=== PATIENT | female | born 1945 | race Caucasian/White ===

== ENCOUNTER 2019-03-21 09:43 | Observation (INO) | payer OTHER ==
[2019-03-21] MEDS ORDERED: IPRATROPIUM/ALBUTEROL 0.5-2.5 MG/3 ML AMPUL NEB ONE (10:02)
[2019-03-21] MEDS ORDERED: METHYLPREDNISOLONE INJ 125 MG/2 ML SDV IV ONE (10:02)
[2019-03-21] MEDS ORDERED: MAGNESIUM SULFATE/D5W 1 GM/100 ML RTUPB IV ONE ×2 (10:03)
--- NOTE | 2019-03-21 10:05 | ER Document Report ---
ED Medical Screen (RME) - General Chief Complaint: Breathing Difficulty Stated Complaint: DIFFICULTY BREATHING Time Seen by Provider: 03/21/19 09:57 TRAVEL OUTSIDE OF THE [place] IN LAST 30 DAYS: No - HPI Notes: 03/21/19 10:04 Patient is a 73-year-old female with a history of non-oxygen dependent COPD with baseline oxygen saturations around 97% per patient as well as type 2 diabetes (well controlled) presents complaining of semi-productive cough, wheezing, shortness of breath since [place]. She has been on steroids intermittently throughout this time. Patient states that she feels like she is getting worse so she came here for evaluation. She is not having any chest pain otherwise. No fever. I have treated and performed a rapid initial assessment of this patient. A comprehensive ED assessment and evaluation of the patient, analysis of test results and completion of medical decision making process will be conducted by additional ED providers. PHYSICAL EXAMINATION: GENERAL: Well-appearing, well-nourished and in no acute distress. A&Ox4. Answers questions appropriately. Lungs: Wheezing and diminished lung sounds throughout. No retractions. - Related Data Allergies/Adverse Reactions: Penicillins Allergy (Verified 03/21/19 10:02) Past Medical History - Social History Chew tobacco use (# tins/day): No Frequency of alcohol use: None Drug Abuse: None Physical Exam - Vital signs Vitals: Temp Pulse Resp BP Pulse Ox 97.8 F 103 H 22 H 135/77 H 89 L 03/21/19 09:52 03/21/19 09:52 03/21/19 09:52 03/21/19 09:52 03/21/19 09:52 Course - Vital Signs Vital signs: Temp Pulse Resp BP Pulse Ox 97.8 F 103 H 22 H 135/77 H 89 L 03/21/19 09:52 03/21/19 09:52 03/21/19 09:52 03/21/19 09:52 03/21/19 09:52
[2019-03-21 10:53] LABS: VENOUS BLOOD BASE EXCESS 8.6 mmol/L; VENOUS BLOOD PCO2 58.4 mmHg (35-63); VENOUS BLOOD PH 7.41 (7.30-7.42)
[2019-03-21 11:03] LABS: ABSOLUTE EOSINOPHILS # (AUTO) 0.1 10^3/uL (0.0-0.6); ABSOLUTE MONOCYTES (AUTO) 0.5 10^3/uL (0.1-1.4); ABSOLUTE NEUT (AUTO) 3.3 10^3/uL (1.7-8.2); BASOPHILS % (AUTO) 0.6 % (0-2); EOSINOPHILS % (AUTO) 1.9 % (0-6); HEMATOCRIT 50.5 % (36.0-47.0); HEMOGLOBIN 17.2 g/dL (12.0-15.5); LYMPHOCYTES % (AUTO) 42.6 % (13-45); MEAN CORPUSCULAR HEMOGLOBIN 32.4 pg (27.0-33.4); MEAN CORPUSCULAR HGB CONC 34.1 g/dL (32.0-36.0); MEAN CORPUSCULAR VOLUME 95 fl (80-97); MONOCYTES % (AUTO) 7.2 % (3-13); PLATELET COUNT 261 10^3/uL (150-450); RED BLOOD COUNT 5.31 10^6/uL (3.72-5.28); RED CELL DISTRIBUTION WIDTH 14.7 % (11.5-14.0); SEGMENTED NEUTROPHILS % (AUTO) 47.7 % (42-78); TOTAL CELLS COUNTED % (AUTO) 100 %
[2019-03-21 11:10] LABS: ALBUMIN 4.6 g/dL (3.5-5.0); ALKALINE PHOSPHATASE 55 U/L (38-126); ANION GAP 7 (5-19); ASPARTATE AMINO TRANSFERASE 36 U/L (14-36); BILIRUBIN,DIRECT 0.3 mg/dL (0.0-0.4); BILIRUBIN,TOTAL 0.7 mg/dL (0.2-1.3); BLOOD UREA NITROGEN 7 mg/dL (7-20); CALCIUM 9.9 mg/dL (8.4-10.2); CARBON DIOXIDE 35 mmol/L (22-30); CHLORIDE 96 mmol/L (98-107); GLUCOSE 157 mg/dL (75-110); POTASSIUM 3.9 mmol/L (3.6-5.0)
--- NOTE | 2019-03-21 11:12 | ER Document Report ---
ED General - General Chief Complaint: Breathing Difficulty Stated Complaint: DIFFICULTY BREATHING Time Seen by Provider: 03/21/19 09:57 Notes: 73-year-old female who is visiting the area from [place] presents the emergency department complaining of a "COPD attack" that has been progressively worsening since . She was initially started by her primary care physician in [place] on an unknown antibiotic as well as prednisone 50 mg a day for 3 days then 25 mg x 4 days. Patient states that this has not helped at all and she feels like she is getting progressively worse. She denies any fever but admits productive cough as well as wheezing and increasing shortness of breath. Only chest pain is when she coughs. Patient has been having to use her rescue inhaler which is Ventolin 6-8 times a day every day. Does not usually use oxy gen at home. States her oxygen saturation is usually about 97% on room air. TRAVEL OUTSIDE OF THE [place] IN LAST 30 DAYS: No - Related Data Allergies/Adverse Reactions: Penicillins Allergy (Verified 03/21/19 10:02) Past Medical History - General Information source: Patient - Social History Smoking Status: Current Every Day Smoker Chew tobacco use (# tins/day): No Frequency of alcohol use: None Drug Abuse: None Family History: COPD Patient has suicidal ideation: No Patient has homicidal ideation: No Review of Systems - Review of Systems Constitutional: See HPI, Weakness. denies: Fever EENT: No symptoms reported Cardiovascular: See HPI, Chest pain - Only with cough. Respiratory: See HPI, Cough, Short of breath Gastrointestinal: No symptoms reported -: Yes All other systems reviewed and negative Physical Exam - Vital signs Vitals: Temp Pulse Resp BP Pulse Ox 97.8 F 103 H 22 H 135/77 H 89 L 03/21/19 09:52 03/21/19 09:52 03/21/19 09:52 03/21/19 09:52 03/21/19 09:52 Interpretation: Hypoxic - Notes Notes: GENERAL: Alert, appears mildly short of breath. HEAD: Normocephalic, atraumatic EYES: Pupils equal, round and reactive to light, extraocular movements intact. ENT: Oral mucosa moist, tongue midline. NECK: Full range of motion, supple, trachea midline. LUNGS: Somewhat tight, decreased air movement, appears short of breath after speaking a few sentences but not short of breath when I walk into the room initially. Inspiratory squeaking in the right lower lobe, expiratory wheezing. HEART: Regular rate and rhythm, no murmurs, gallops, rubs. ABDOMEN: Soft, nontender, nondistended, bowel sounds present in all 4 quadrants. EXTREMITIES: Moves all 4 extremities spontaneously, no edema, radial and dorsalis pedis pulses 2/4 bilaterally. No cyanosis. NEUROLOGICAL: Alert and oriented x3, no facial droop. PSYCH: Normal mood, normal affect. SKIN: Warm, Dry, normal turgor. Course - Re-evaluation Re-evalutation: 03/21/19 11:12 Shortly after I left the room patient started her albuterol breathing treatment and actually started having more difficulty breathing rather than less. Patient will be started on BiPAP and breathing treatments will be continued. 03/21/19 15:40 Patient was unable to tolerate BiPAP, however after resting on the side of the bed her breathing improved to the point that she could tolerate the facemask with the breathing treatments. Patient ended up doing well off of BiPAP, wheezing resolved with breathing treatments however she was still tachypneic and easily became short of breath. On ambulation she desaturated to 87% on room air. Chest x-ray does not reveal any pneumonia, wheezing is resolved yet hyp oxia persists, venous blood gas grossly unremarkable, chemistries grossly unremarkable, urinalysis unremarkable, CT angiogram of the chest was ordered to rule out pulmonary embolism and this was negative. Patient was treated with breathing treatments and steroids, discussed with Dr. Madrigal who accepted the patient and also discussed with Saskia Marin NP who will be officially admitting the patient. - Vital Signs Vital signs: Temp Pulse Resp BP Pulse Ox 97.8 F 103 H 21 H 129/72 H 89 L 03/21/19 09:52 03/21/19 09:52 03/21/19 15:00 03/21/19 14:01 03/21/19 15:00 - Laboratory Result Diagrams: 03/21/19 10:25 03/21/19 10:25 Laboratory results interpreted by me: 03/21/19 03/21/19 03/21/19 10:25 10:25 10:25 RBC 5.31 H Hgb 17.2 H Hct 50.5 H RDW 14.7 H VBG HCO3 36.0 H Chloride 96 L Carbon Dioxide 35 H Glucose 157 H Urine Glucose (UA) Urine Ketones 03/21/19 13:33 RBC Hgb Hct RDW VBG HCO3 Chloride Carbon Dioxide Glucose Urine Glucose (UA) 50 H Urine Ketones TRACE H - EKG Interpretation by Me Additional EKG results interpreted by me: 03/21/19 15:42 EKG shows sinus rhythm at a rate of 99, normal axis, normal intervals, no ST segment elevations or depressions, there are T wave inversions noted in aVL and 2 per my interpretation. Discharge - Discharge Clinical Impression: Acute and chronic respiratory failure with hypoxia, Acute exacerbation of chronic obstructive pulmonary disease (COPD) Condition: Fair Disposition: ADMITTED INPATIENT Admitting Provider: Rohan (Hospitalist) - [place] [facility] Admitted: Medical Floor
--- NOTE | 2019-03-21 11:23 | EKG REPORT ---
SEVERITY:- BORDERLINE ECG - SINUS RHYTHM BORDERLINE T ABNORMALITIES, ANT-LAT LEADS : Confirmed by: Holly Lora MD 21-Mar-2019 11:22:39
--- NOTE | 2019-03-21 11:50 | RADIOLOGY REPORT (SQ) ---
EXAM DESCRIPTION: CHEST SINGLE VIEW COMPLETED DATE/TIME: 03/21/2019 11:03 am REASON FOR STUDY: SOB, cough COMPARISON: None. EXAM PARAMETERS: NUMBER OF VIEWS: One view. TECHNIQUE: Single frontal radiographic view of the chest acquired. RADIATION DOSE: NA LIMITATIONS: None. FINDINGS: LUNGS AND PLEURA: Upper lobes are hyperlucent from obstructive disease. No acute infiltrates. No pleural effusion. No pneumothorax. MEDIASTINUM AND HILAR STRUCTURES: No masses. Contour normal. HEART AND VASCULAR STRUCTURES: Heart normal in size. Normal vasculature. BONES: No acute findings. HARDWARE: None in the chest. OTHER: No other significant finding. IMPRESSION: Hyperlucency from obstructive disease. No acute infiltrates TECHNICAL DOCUMENTATION: JOB ID: [id number] [employer]- All Rights Reserved Reading location - IP/workstation name: [email or web address]
[2019-03-21 14:19] LABS: APPEARANCE,URINE CLEAR; BILIRUBIN,URINE NEGATIVE (NEGATIVE); COLOR,URINE STRAW; GLUCOSE, URINE 50 mg/dL (NEGATIVE); KETONES,URINE TRACE mg/dL (NEGATIVE); PROTEIN,URINE NEGATIVE (NEGATIVE); URINE SPECIFIC GRAVITY 1.006; UROBILINOGEN,URINE NEGATIVE mg/dL (<2.0)
--- NOTE | 2019-03-21 14:46 | RADIOLOGY REPORT (SQ) ---
EXAM DESCRIPTION: CTA CHEST COMPLETED DATE/TIME: 03/21/2019 2:32 pm REASON FOR STUDY: COPD, hypoxia, r/o PE COMPARISON: AP chest 03/21/2019 TECHNIQUE: CT scan of the chest performed using helical scanning technique with dynamic intravenous contrast injection. Images reviewed with lung, soft tissue and bone windows. Reconstructed coronal and sagittal MPR images reviewed. Additional 3 dimensional post-processing performed to develop Maximal Intensity Projection images (NH P). All images stored on PACS. All CT scanners at this facility use dose modulation, iterative reconstruction, and/or weight based d osing when appropriate to reduce radiation dose to as low as reasonably achievable (ALARA). [facility]: Dose Right [facility]: CareDose [facility]: Dose Right [facility]: Teradose 4D [facility]: Canpages CONTRAST TYPE AND DOSE: contrast/concentration: Isovue 350.00 mg/ml; Total Contrast Delivered: 49.0 ml; Total Saline Delivered: 28.0 ml Contrast bolus adequate for pulmonary arteries and aorta. RENAL FUNCTION: Creatinine 0.5 RADIATION DOSE: CT Rad equipment meets quality standard of care and radiation dose reduction techniq ues were employed. CTDIvol: 6.6 - 14.3 mGy. DLP: 521 mGy-cm. . LIMITATIONS: Mild motion artifact. FINDINGS: LUNGS AND PLEURA: No acute infiltrates. No pleural effusion or pneumothorax. Benign-appe aring 5 mm nodule along the right major fissure axial image 55, sagittal image 21. Chronic bandlike scarring medial aspect right middle lobe axial image [id number]. AORTA AND GREAT VESSELS: No aneurysm. Contrast bolus not optimized for the aorta. HEART: No pericardial effusion. No significant coronary artery calcifications. PULMONARY ARTERIES: No emboli visualized in the main pulmonary arteries or the segmental branches. HILAR AND MEDIASTINAL STRUCTURES: No identified masses or abnormal nodes. HARDWARE: None in the chest. UPPER ABDOMEN: No significant findings. Limited exam. THYROID AND OTHER SOFT TISSUES: No masses. No adenopathy. BONES: No acute or significant finding. 3D MIPS: Confirm above findings. OTHER: No other significant finding. IMPRESSION: No CT angio evidence of thoracic aortic dissection or acute pulmonary emboli. No acute infiltrates. COMMENT: Quality ID # [id number]: Final reports with documentation of one or more dose reduction techniques (e.g., Automated exposure control, adjustment of the mA and/or kV according to patient size, use of iterative reconstruction technique) TECHNICAL DOCUMENTATION: JOB ID: [id number] [employer]- All Rights Reserved Reading location - IP/workstation name: [email or web address]
[2019-03-21] MEDS ORDERED: MAG HYDROX/AL HYDROX/SIMETH SUSP 30 ML UDCUP PO PRN (17:06)
[2019-03-21] MEDS ORDERED: ONDANSETRON HCL INJ/PF 4 MG/2 ML SDV IV PRN (17:06)
[2019-03-21] MEDS ORDERED: ACETAMINOPHEN 325 MG TABLET PO PRN (17:06)
[2019-03-21] MEDS ORDERED: ALBUTEROL SULFATE 0.083% NEB 2.5 MG/3 ML AMPUL NEB PRN (17:06)
[2019-03-21] MEDS ORDERED: GLUCAGON,HUMAN RECOMB 1 MG INJ IM PRN (17:28)
[2019-03-21] MEDS ORDERED: DEXTROSE 40% GEL 15 GM TUBE PO PRN ×2 (17:28)
[2019-03-21] MEDS ORDERED: DEXTROSE 50%-WATER 25 GM/50 ML DISP.SYRIN IV PRN ×2 (17:28)
--- NOTE | 2019-03-21 17:31 | PDOC H&P ---
History of Present Illness Admission Date/PCP: 03/21/19 15:52 Patient complains of: shortness of breath History of Present Illness: DK MONGE is a 73 year old female with a past medical history significant for DM 2, HLD, COPD, tobacco dependence with continuous use who presents to the emergency department today with a complaint of 3 weeks of progressively worsening shortness of breath and productive cough unresponsive to prednisone and rescue inhalers. Patient is now experiencing dyspnea while at rest. Evaluation in the emergency department reveals Tachycardia (HR 110), tachypnea (RR 29), hypoxia on room air (88 at rest: 82% while ambulatory), unremarkable CBC, VBG, chemistry, urinalysis. EKG shows sinus tachycardia. Chest x-ray and CTA show obstructive disease but otherwise are benign. She is provided IV magnesium, Solu-Medrol, nebulizer treatments, and supplemental oxygen. She is referred to the hospitalist service for admission and management of the above-stated complaints of findings. Past Medical History Cardiac Medical History: Reports: Hyperlipidema Denies: Congestive Heart Failure, Coronary Artery Disease, Myocardial Infarction, Hypertension Pulmonary Medical History: Reports: Chronic Obstructive Pulmonary Disease (COPD) EENT Medical History: Reports: None Neurological Medical History: Reports: None Endocrine Medical History: Reports: Diabetes Mellitus Type 2 Renal/ Medical History: Reports: None Malignancy Medical History: Reports: None GI Medical History: Reports: None Musculoskeltal Medical History: Reports: None Skin Medical History: Reports: None Psychiatric Medical History: Reports: Tobacco Dependency Denies: Alcohol Dependency, Depression, Substance Abuse Traumatic Medical History: Reports: None Hematology: Reports: None Infectious Medical History: Reports: None Past Surgical History Past Surgical History: Reports: Section - x2, Orthopedic Surgery - L ankle, Tonsillectomy Social History Information Source: Patient Lives with: Family Smoking Status: Current Every Day Smoker Cigarettes Packs Per Day: 0.5 Electronic Cigarette use?: No Frequency of Alcohol Use: None Hx Recreational Drug Use: No Drugs: None Hx Prescription Drug Abuse: No - Advance Directive Resuscitation Status: Full Code Family History Family History: COPD Parental Family History Reviewed: Yes Children Family History Reviewed: Yes Sibling(s) Family History Reviewed.: Yes Medication/Allergy Home Medications: Albuterol Sulfate [Ventolin Hfa 8 gm Mdi (1 Mdi/ER Disp)] 2 puff IH Q4HP PRN 03/21/19 Alendronate Sodium [Fosamax 70 mg Tablet] 1 tab PO WE@1000 03/21/19 Calcium Carbonate [Os-Tyrell 500 mg Tablet (Oyster-Shell)] 500 mg PO DAILY 03/21/19 Cholecalciferol (Vitamin D3) [Vitamin D3] 10,000 unit PO WE@1000 03/21/19 Ciclesonide [Alvesco HFA] 2 puff IH QHS 03/21/19 Cyanocobalamin (Vitamin B-12) [Vitamin B-12 250 mcg Tablet] 250 mcg PO DAILY 03/21/19 Metformin HCl [Glucophage 500 mg Tablet] 1,000 mg PO BIDBS 03/21/19 Rosuvastatin Calcium [Crestor 20 mg Tablet] 20 mg PO QHS 03/21/19 Tiotropium [place] [Spiriva Respimat] 2 puff IH DAILY 03/21/19 Allergies/Adverse Reactions: Penicillins Allergy (Verified 03/21/19 10:02) Review of Systems Constitutional: ABSENT: chills, fever(s), headache(s), weight gain, weight loss Eyes: ABSENT: visual disturbances Ears: ABSENT: hearing changes Cardiovascular: ABSENT: chest pain, dyspnea on exertion, edema, orthropnea, palpitations Respiratory: PRESENT: cough, dyspnea, sputum. ABSENT: hemoptysis Gastrointestinal: ABSENT: abdominal pain, constipation, diarrhea, hematemesis, hematochezia, nausea, vomiting Genitourinary: ABSENT: dysuria, hematuria Musculoskeletal: ABSENT: joint swelling Integumentary: ABSENT: rash, wounds Neurological: ABSENT: abnormal gait, abnormal speech, confusion, dizziness, focal weakness, syncope Psychiatric: ABSENT: anxiety, depression, homidical ideation, suicidal ideation Endocrine: ABSENT: cold intolerance, heat intolerance, polydipsia, polyuria Hematologic/Lymphatic: ABSENT: easy bleeding, easy bruising Physical Exam Vital Signs: Temp Pulse Resp BP Pulse Ox 97.8 F 103 H 21 H 129/72 H 89 L 03/21/19 09:52 03/21/19 09:52 03/21/19 15:00 03/21/19 14:01 03/21/19 15:00 Intake & Output 03/20/19 03/21/19 03/22/19 06:59 06:59 06:59 Intake Total 200 Balance 200 Weight 49.6 kg General appearance: PRESENT: no acute distress, cooperative, thin, well- developed Head exam: PRESENT: atraumatic, normocephalic Eye exam: PRESENT: conjunctiva pink, EOMI, PERRLA. ABSENT: scleral icterus Ear exam: PRESENT: normal external ear exam Mouth exam: PRESENT: moist, tongue midline Teeth exam: PRESENT: dental caries, poor dentation Neck exam: ABSENT: carotid bruit, JVD, lymphadenopathy, thyromegaly Respiratory exam: PRESENT: prolonged expiratory phas, rhonchi, symmetrical, tachypnea, unlabored, other - supplemental oxygen. ABSENT: rales, wheezes Cardiovascular exam: PRESENT: RRR, +S1, +S2, tachycardia. ABSENT: diastolic murmur, rubs, systolic murmur Pulses: PRESENT: normal dorsalis pedis pul Vascular exam: PRESENT: normal capillary refill Rectal exam: PRESENT: deferred Extremities exam: PRESENT: full ROM. ABSENT: calf tenderness, clubbing, pedal edema Musculoskeletal exam: PRESENT: ambulatory Neurological exam: PRESENT: alert, awake, oriented to person, oriented to place, oriented to time, oriented to situation, CN II-XII grossly intact. ABSENT: motor sensory deficit Psychiatric exam: PRESENT: appropriate affect, normal mood. ABSENT: homicidal ideation, suicidal ideation Skin exam: PRESENT: dry, intact, warm. ABSENT: cyanosis, rash Results Laboratory Results: 03/21/19 10:25 03/21/19 10:25 03/21/19 03/21/19 03/21/19 10:25 10:25 10:25 WBC 7.0 RBC 5.31 H Hgb 17.2 H Hct 50.5 H MCV 95 MCH 32.4 MCHC 34.1 RDW 14.7 H Plt Count 261 Seg Neutrophils % 47.7 VBG pH 7.41 VBG pCO2 58.4 VBG HCO3 36.0 H VBG Base Excess 8.6 Sodium 138.2 Potassium 3.9 Chloride 96 L Carbon Dioxide 35 H Anion Gap 7 BUN 7 Creatinine 0.52 Est GFR ( Amer) > 60 Glucose 157 H Lactic Acid Calcium 9.9 Total Bilirubin 0.7 AST 36 Alkaline Phosphatase 55 Total Protein 8.0 Albumin 4.6 Urine Color Urine Appearance Urine pH Ur Specific [place] Urine Protein Urine Glucose (UA) Urine Ketones Urine Blood 03/21/19 03/21/19 03/21/19 10:25 13:15 13:33 WBC RBC Hgb Hct MCV MCH MCHC RDW Plt Count Seg Neutrophils % VBG pH VBG pCO2 VBG HCO3 VBG Base Excess Sodium Potassium Chloride Carbon Dioxide Anion Gap BUN Creatinine Est GFR ( Amer) Glucose Lactic Acid 1.3 1.4 Calcium Total Bilirubin AST Alkaline Phosphatase Total Protein Albumin Urine Color STRAW Urine Appearance CLEAR Urine pH 6.0 Ur Specific [place] 1.006 Urine Protein NEGATIVE Urine Glucose (UA) 50 H Urine Ketones TRACE H Urine Blood NEGATIVE Impressions: Chest X-Ray 03/21/19 10:02 IMPRESSION: Hyperlucency from obstructive disease. No acute infiltrates Chest/Abdomen CTA 03/21/19 13:46 IMPRESSION: No CT angio evidence of thoracic aortic dissection or acute pulmonary emboli. No acute infiltrates. Assessment and Plan - Diagnosis (1) Acute exacerbation of chronic obstructive pulmonary disease (COPD) Is this a current diagnosis for this admission?: Yes Plan: Patient is admitted to the medical floor on continuous pulse oximetry. She is provided supplemental oxygen as needed to maintain saturations greater than 89%. She is started on scheduled and as needed nebulizer treatments. IV Solu-Medrol. Mucinex twice daily. Flutter valve at bedside. (2) Acute and chronic respiratory failure with hypoxia Is this a current diagnosis for this admission?: Yes Plan: Secondary to #1. Evaluation management as above. (3) Diabetes Qualifiers: Diabetes mellitus type: type 2 Diabetes mellitus snf insulin use: without snf use Diabetes mellitus complication status: without complication Qualified Code(s): E11.9 - Type 2 diabetes mellitus without complications Is this a current diagnosis for this admission?: Yes Plan: Holding metformin due to having received IV contrast dye today while in the emergency department. Accu-Cheks before meals and at bedtime with Humalog for sliding scale coverage. Consistent carb diet. Hypoglycemia protocol in place. (4) Tobacco dependence Is this a current diagnosis for this admission?: Yes Plan: Smoking cessation encouraged. Nicotine replacement therapies provided. - Time Time Spent with patient: 35 or more minutes Medications reviewed and adjusted accordingly: Yes Anticipated discharge: Home Within: within 24 hours
[2019-03-21] MEDS: NICOTINE 14 MG/24 HR PATCH.TD24 TD SCH (18:12)
[2019-03-21] MEDS: IPRATROPIUM/ALBUTEROL 0.5-2.5 MG/3 ML AMPUL NEB SCH (20:22)
[2019-03-21] MEDS ORDERED: (PENDING PHARMACY ID) (Alendronate Sodium [Fosamax 70 Mg Tablet] 1 TAB) PO SCH (21:00)
[2019-03-21] MEDS: MELATONIN 5 MG TABLET PO SCH (22:00)
[2019-03-21] MEDS: HEPARIN SOD (PORCINE) 5,000 UNIT/ML 1 ML VIAL SUBCUT SCH (22:00)
[2019-03-21] MEDS ORDERED: (PENDING PHARMACY ID) (Rosuvastatin Calcium [Crestor 20 Mg Tablet] 20 MG) PO SCH (22:00)
[2019-03-21] MEDS: FAMOTIDINE 20 MG TABLET PO SCH (22:00)
[2019-03-21] MEDS ORDERED: METHYLPREDNISOLONE INJ 40 MG/1 ML SDV IV SCH (22:00)
[2019-03-21] MEDS: GUAIFENESIN 600 MG TABLET.SA PO SCH (22:00)
[2019-03-22] MEDS: INSULIN LISPRO 100 UNIT/ML 3 ML VIAL SUBCUT SCH ×5 (01:04→21:29)
[2019-03-22] MEDS: ATORVASTATIN CALCIUM 40 MG TABLET PO SCH ×2 (01:10→21:30)
[2019-03-22] MEDS: IPRATROPIUM/ALBUTEROL 0.5-2.5 MG/3 ML AMPUL NEB SCH ×4 (02:46→20:52)
[2019-03-22] MEDS: HEPARIN SOD (PORCINE) 5,000 UNIT/ML 1 ML VIAL SUBCUT SCH ×3 (05:57→21:01)
[2019-03-22] MEDS: METFORMIN HCL 500 MG TABLET PO SCH ×2 (07:30→16:58)
[2019-03-22] MEDS: NICOTINE 14 MG/24 HR PATCH.TD24 TD SCH (09:10)
[2019-03-22] MEDS: CALCIUM CARBONATE 500 MG TABLET PO SCH (09:10)
[2019-03-22] MEDS: DOCUSATE SODIUM 100 MG CAPSULE PO SCH (09:10)
[2019-03-22] MEDS: FAMOTIDINE 20 MG TABLET PO SCH ×2 (09:11→21:30)
[2019-03-22] MEDS: GUAIFENESIN 600 MG TABLET.SA PO SCH ×2 (09:14→21:30)
[2019-03-22] MEDS ORDERED: (PENDING PHARMACY ID) (Alendronate Sodium [Fosamax 70 Mg Tablet] 1 TAB) PO SCH (10:00)
--- NOTE | 2019-03-22 17:04 | PDOC PROGRESS REPORT ---
Subjective Progress Note for:: 03/22/19 Subjective:: DK MONGE is a 73 year old female with a past medical history significant for DM 2, HLD, COPD, tobacco dependence with continuous use who was admitted 03/21/2019 with a COPD exacerbation. Patient was seen on morning rounds. She is found sitting up to the edge of the bed, comfortably, on room air preparing to eat her lunch. She reports significant improvement in her dyspnea, however, with increased rhonchi, wheezing, and sputum production. She does continue to have shortness of breath with minimal activity but is maintaining oxygen saturations while ambulatory on room air, though with slight tachycardia. She denies fever, chills, chest pain, palpitations, orthopnea, abdominal pain, nausea vomiting and diarrhea. She reports good appetite. She has no other questions or concerns at this time. Nursing reports patient has been taking her home medications; reviewed these with the patient today. Patient has been taking her metformin; she is advised to hold metformin for an additional 24 hours due to receiving IV contrast dye yesterday. Reason For Visit: COPD EXACERBATION Physical Exam Vital Signs: Temp Pulse Resp BP Pulse Ox 98.4 F 103 H 18 132/80 H 90 L 03/22/19 13:00 03/22/19 13:44 03/22/19 13:44 03/22/19 13:00 03/22/19 16:45 Pulse Oximeter Continuous Start: 03/21/19 17:26 Freq: RTQ4 Status: Active Protocol: Document 03/22/19 16:45 [facility] (Rec: 03/22/19 16:47 [facility] [id number]) Pulse Oximetry Assessment Oxygen Saturation (92-100) 90 Oxygen Flow Rate (L/min) 1 Oxygen Delivery Method Nasal Cannula Equipment Usage Equipment in Use Continuous SpO2 Machine # [id number] Additional RT Notes Other Patient adamantly refused to use the bipap. She indicated she used while in the emergency room and will not wear again. Intake & Output 03/21/19 03/22/19 03/23/19 06:59 06:59 06:59 Intake Total 500 496 Balance 500 496 Weight 51.7 kg General appearance: PRESENT: no acute distress, cooperative, disheveled, thin, well-developed Head exam: PRESENT: atraumatic, normocephalic Eye exam: PRESENT: conjunctiva pink, EOMI, PERRLA. ABSENT: scleral icterus Ear exam: PRESENT: normal external ear exam Mouth exam: PRESENT: moist, tongue midline Teeth exam: PRESENT: poor dentation Neck exam: ABSENT: carotid bruit, JVD, lymphadenopathy, thyromegaly Respiratory exam: PRESENT: prolonged expiratory phas, rhonchi, symmetrical, unlabored, wheezes. ABSENT: rales Cardiovascular exam: PRESENT: RRR, +S1, +S2, tachycardia. ABSENT: diastolic murmur, rubs, systolic murmur Pulses: PRESENT: normal dorsalis pedis pul Vascular exam: PRESENT: normal capillary refill Rectal exam: PRESENT: deferred Extremities exam: PRESENT: full ROM. ABSENT: calf tenderness, clubbing, pedal edema Musculoskeletal exam: PRESENT: ambulatory Neurological exam: PRESENT: alert, awake, oriented to person, oriented to place, oriented to time, oriented to situation, CN II-XII grossly intact. ABSENT: motor sensory deficit Psychiatric exam: PRESENT: appropriate affect, normal mood. ABSENT: homicidal ideation, suicidal ideation Skin exam: PRESENT: dry, intact, warm. ABSENT: cyanosis, rash Results Laboratory Results: 03/21/19 10:25 03/21/19 10:25 Impressions: Chest X-Ray 03/21/19 10:02 IMPRESSION: Hyperlucency from obstructive disease. No acute infiltrates Chest/Abdomen CTA 03/21/19 13:46 IMPRESSION: No CT angio evidence of thoracic aortic dissection or acute pulmonary emboli. No acute infiltrates. Assessment and Plan - Diagnosis (1) Acute exacerbation of chronic obstructive pulmonary disease (COPD) Is this a current diagnosis for this admission?: Yes Plan: Improved; now maintaining oxygen saturations while ambulatory with room air, though with adventitious lung sounds and increased work of breathing. Patient is admitted to the medical floor on continuous pulse oximetry. She is provided supplemental oxygen as needed to maintain saturations greater than 89%. Continue on scheduled and as needed nebulizer treatments. IV Solu-Medrol. Mucinex twice daily. Flutter valve at bedside. (2) Acute and chronic respiratory failure with hypoxia Is this a current diagnosis for this admission?: Yes Plan: Secondary to #1. Evaluation management as above. (3) Diabetes Qualifiers: Diabetes mellitus type: type 2 Diabetes mellitus terminal carman insulin use: without [place] use Diabetes mellitus complication status: without complication Qualified Code(s): E11.9 - Type 2 diabetes mellitus without complications Is this a current diagnosis for this admission?: Yes Plan: Holding metformin due to having received IV contrast dye while in the emergency department. Patient is reminded not to take her home medications; specifically metformin, due to having received contrast dye yesterday. Accu-Cheks before meals and at bedtime with Humalog for sliding scale coverage. Consistent carb diet. Hypoglycemia protocol in place. (4) Tobacco dependence Is this a current diagnosis for this admission?: Yes Plan: Smoking cessation encouraged. Nicotine replacement therapies provided. - Time Time Spent with patient: 25-34 minutes Medications reviewed and adjusted accordingly: Yes Anticipated discharge: Home Within: within 48 hours
[2019-03-22] MEDS: MELATONIN 5 MG TABLET PO SCH (21:30)
[2019-03-22] MEDS: METHYLPREDNISOLONE INJ 40 MG/1 ML SDV IV SCH (21:31)
[2019-03-23] MEDS: IPRATROPIUM/ALBUTEROL 0.5-2.5 MG/3 ML AMPUL NEB SCH ×4 (01:50→20:00)
[2019-03-23] MEDS: HEPARIN SOD (PORCINE) 5,000 UNIT/ML 1 ML VIAL SUBCUT SCH ×3 (06:07→21:01)
[2019-03-23] MEDS: METHYLPREDNISOLONE INJ 40 MG/1 ML SDV IV SCH ×3 (06:22→21:12)
[2019-03-23] MEDS: INSULIN LISPRO 100 UNIT/ML 3 ML VIAL SUBCUT SCH ×4 (08:15→21:12)
[2019-03-23] MEDS: METFORMIN HCL 500 MG TABLET PO SCH ×2 (08:17→17:38)
[2019-03-23] MEDS: GUAIFENESIN 600 MG TABLET.SA PO SCH ×2 (09:25→21:12)
[2019-03-23] MEDS: DOCUSATE SODIUM 100 MG CAPSULE PO SCH (09:26)
[2019-03-23] MEDS: NICOTINE 14 MG/24 HR PATCH.TD24 TD SCH (09:26)
[2019-03-23] MEDS: FAMOTIDINE 20 MG TABLET PO SCH ×2 (09:26→21:02)
[2019-03-23] MEDS: CALCIUM CARBONATE 500 MG TABLET PO SCH (09:26)
[2019-03-23] MEDS ORDERED: ONDANSETRON HCL INJ/PF 4 MG/2 ML SDV IV PRN (09:30)
--- NOTE | 2019-03-23 15:25 | PDOC PROGRESS REPORT ---
Subjective Progress Note for:: 03/23/19 Subjective:: DK MONGE is a 73 year old female with a past medical history significant for DM 2, HLD, COPD, tobacco dependence with continuous use who was admitted 03/21/2019 with a COPD exacerbation. Patient was seen on morning rounds. She is found sitting up to the edge of the bed, comfortably, on room air. She reports significant improvement in her dyspnea, as well as, decreased rhonchi, wheezing, and sputum production. She does continue to have shortness of breath with minimal activity but is maintaining oxygen saturations while ambulatory on room air, though with slight tachycardia. Overall improved. She denies fever, chills, chest pain, palpitations, orthopnea, abdominal pain, nausea vomiting and diarrhea. She reports good appetite. She has no other questions or concerns at this time. No concerns per nursing. Reason For Visit: COPD EXACERBATION Physical Exam Vital Signs: Temp Pulse Resp BP Pulse Ox 98.3 F 86 16 123/70 91 L 03/23/19 01:00 03/23/19 07:32 03/23/19 07:32 03/23/19 01:00 03/23/19 12:00 Pulse Oximeter Continuous Start: 03/21/19 17:26 Freq: RTQ4 Status: Active Protocol: Document 03/23/19 12:00 [facility] (Rec: 03/23/19 12:10 [facility] [id number]) Pulse Oximetry Assessment Oxygen Saturation (92-100) 91 Oxygen Delivery Method Room Air Fraction of Inspired Oxygen (FIO2) 21 Equipment Usage Equipment in Use Continuous SpO2 Machine # N5 Intake & Output 03/22/19 03/23/19 03/24/19 06:59 06:59 06:59 Intake Total 500 1496 Balance 500 1496 Weight 51.7 kg 51.6 kg General appearance: PRESENT: no acute distress, cooperative, thin, well- developed, well-nourished Head exam: PRESENT: atraumatic, normocephalic Eye exam: PRESENT: conjunctiva pink, EOMI, PERRLA. ABSENT: scleral icterus Ear exam: PRESENT: normal external ear exam Mouth exam: PRESENT: moist, tongue midline Teeth exam: PRESENT: poor dentation Respiratory exam: PRESENT: prolonged expiratory phas, rhonchi, symmetrical, unlabored, wheezes. ABSENT: rales Cardiovascular exam: PRESENT: RRR, +S1, +S2, tachycardia - HR 100-115 at rest on room air. ABSENT: diastolic murmur, rubs, systolic murmur Pulses: PRESENT: normal dorsalis pedis pul Vascular exam: PRESENT: normal capillary refill GI/Abdominal exam: PRESENT: normal bowel sounds, soft. ABSENT: distended, guarding, mass, organolmegaly, rebound, tenderness Rectal exam: PRESENT: deferred Extremities exam: PRESENT: full ROM. ABSENT: calf tenderness, clubbing, pedal edema Musculoskeletal exam: PRESENT: ambulatory Neurological exam: PRESENT: alert, awake, oriented to person, oriented to place, oriented to time, oriented to situation, CN II-XII grossly intact. ABSENT: motor sensory deficit Psychiatric exam: PRESENT: appropriate affect, normal mood. ABSENT: homicidal ideation, suicidal ideation Skin exam: PRESENT: dry, intact, warm. ABSENT: cyanosis, rash Results Laboratory Results: 03/21/19 10:25 03/21/19 10:25 Impressions: Chest X-Ray 03/21/19 10:02 IMPRESSION: Hyperlucency from obstructive disease. No acute infiltrates Chest/Abdomen CTA 03/21/19 13:46 IMPRESSION: No CT angio evidence of thoracic aortic dissection or acute pulmonary emboli. No acute infiltrates. Assessment and Plan - Diagnosis (1) Acute exacerbation of chronic obstructive pulmonary disease (COPD) Is this a current diagnosis for this admission?: Yes Plan: Improved; now maintaining oxygen saturations while ambulatory with room air, though with adventitious lung sounds and increased work of breathing. Patient is admitted to the medical floor on continuous pulse oximetry. She is provided supplemental oxygen as needed to maintain saturations greater than 89%. Continue on scheduled and as needed nebulizer treatments. IV Solu-Medrol; will begin weaning today Mucinex twice daily. Flutter valve at bedside. (2) Acute and chronic respiratory failure with hypoxia Is this a current diagnosis for this admission?: Yes Plan: Secondary to #1. Evaluation management as above. (3) Diabetes Qualifiers: Diabetes mellitus type: type 2 Diabetes mellitus correction insulin use: without [facility] use Diabetes mellitus complication status: without complication Qualified Code(s): E11.9 - Type 2 diabetes mellitus without complications Is this a current diagnosis for this admission?: Yes Plan: Resume home dose metformin. Accu-Cheks before meals and at bedtime with Humalog for sliding scale coverage. Consistent carb diet. Hypoglycemia protocol in place. (4) Tobacco dependence Is this a current diagnosis for this admission?: Yes Plan: Smoking cessation encouraged. Nicotine replacement therapies provided. - Time Time Spent with patient: 25-34 minutes Medications reviewed and adjusted accordingly: Yes Anticipated discharge: Home Within: within 24 hours
[2019-03-23] MEDS: MELATONIN 5 MG TABLET PO SCH (21:02)
[2019-03-23] MEDS: ATORVASTATIN CALCIUM 40 MG TABLET PO SCH (21:02)
[2019-03-24] MEDS: IPRATROPIUM/ALBUTEROL 0.5-2.5 MG/3 ML AMPUL NEB SCH ×2 (02:17→07:44)
[2019-03-24] MEDS: HEPARIN SOD (PORCINE) 5,000 UNIT/ML 1 ML VIAL SUBCUT SCH (05:28)
[2019-03-24] MEDS: METHYLPREDNISOLONE INJ 40 MG/1 ML SDV IV SCH (06:56)
[2019-03-24] MEDS: INSULIN LISPRO 100 UNIT/ML 3 ML VIAL SUBCUT SCH (07:52)
[2019-03-24] MEDS: METFORMIN HCL 500 MG TABLET PO SCH (07:58)
[2019-03-24] MEDS: NICOTINE 14 MG/24 HR PATCH.TD24 TD SCH (09:04)
[2019-03-24] MEDS: DOCUSATE SODIUM 100 MG CAPSULE PO SCH (09:04)
[2019-03-24] MEDS: CALCIUM CARBONATE 500 MG TABLET PO SCH (09:05)
[2019-03-24] MEDS: FAMOTIDINE 20 MG TABLET PO SCH (09:05)
[2019-03-24] MEDS: GUAIFENESIN 600 MG TABLET.SA PO SCH (09:13)
[2019-03-24 11:03] VITALS: BP 135/78
--- NOTE | 2019-03-24 18:04 | PDOC DISCHARGE SUMMARY ---
Impression - Admit/DC Date/PCP Admission Date/Primary Care Provider: 03/21/19 15:52 Discharge Date: 03/24/19 - Discharge Diagnosis (1) Acute exacerbation of chronic obstructive pulmonary disease (COPD) Is this a current diagnosis for this admission?: Yes (2) Acute and chronic respiratory failure with hypoxia Is this a current diagnosis for this admission?: Yes (3) Diabetes Is this a current diagnosis for this admission?: Yes (4) Tobacco dependence Is this a current diagnosis for this admission?: Yes - Additional Information Resuscitation Status: Full Code Discharge Diet: Diabetic Discharge Activity: Activity As Tolerated, Balance Activity w/Rest, Slowly Increase Activity Referrals: PRIMARY,CARE PROVIDER [Other] (PATIENT IS FROM [place] AND WILL FOLLOW UP UPON RETURNING HOME) Prescriptions: Prednisone [Deltasone 20 mg Tablet] 60 mg PO DAILY #12 tablet Ipratropium/Albuterol Sulfate [Duoneb 3 ml Ampul] 3 ml NEB RTQ6HP PRN #60 vial. neb PRN Reason: Guaifenesin [Mucinex Sr 600 mg Tablet.sa] 600 mg PO Q12 #14 tablet.sa Nebulizer [Nebulizer Machine] 1 each MC ASDIR PRN #1 kit PRN Reason: Nicotine [Nicoderm 14 mg/24 Hr Transdermal Patch] 1 each TD DAILY #30 patch.td24 Albuterol Sulfate [Ventolin Hfa 8 gm Mdi (1 Mdi/ER Disp)] 2 puff IH Q4HP PRN #1 inhaler PRN Reason: SOB/WHEEZING Home Medications: Alendronate Sodium [Fosamax 70 mg Tablet] 1 tab PO WE@1000 03/21/19 Calcium Carbonate [Os-Tyrell 500 mg Tablet (Oyster-Shell)] 500 mg PO DAILY 03/21/19 Cholecalciferol (Vitamin D3) [Vitamin D3] 10,000 unit PO WE@1000 03/21/19 Ciclesonide [Alvesco HFA] 2 puff IH QHS 03/21/19 Cyanocobalamin (Vitamin B-12) [Vitamin B-12 250 mcg Tablet] 250 mcg PO DAILY 03/21/19 Metformin HCl [Glucophage 500 mg Tablet] 1,000 mg PO BIDBS 03/21/19 Rosuvastatin Calcium [Crestor 20 mg Tablet] 20 mg PO QHS 03/21/19 Tiotropium [place] [Spiriva Respimat] 2 puff IH DAILY 03/21/19 Acetaminophen [Tylenol 325 mg Tablet] 650 mg PO Q4HP PRN tablet 03/24/19 Albuterol Sulfate [Ventolin Hfa 8 gm Mdi (1 Mdi/ER Disp)] 2 puff IH Q4HP PRN #1 inhaler 03/24/19 Docusate Sodium [Colace 100 mg Capsule] 100 mg PO DAILY capsule 03/24/19 Guaifenesin [Mucinex Sr 600 mg Tablet.sa] 600 mg PO Q12 #14 tablet.sa 03/24/19 Ipratropium/Albuterol Sulfate [Duoneb 3 ml Ampul] 3 ml NEB RTQ6HP PRN #60 vial.neb 03/24/19 Nebulizer [Nebulizer Machine] 1 each MC ASDIR PRN #1 kit 03/24/19 Nicotine [Nicoderm 14 mg/24 Hr Transdermal Patch] 1 each TD DAILY #30 patch.td24 03/24/19 Prednisone [Deltasone 20 mg Tablet] 60 mg PO DAILY #12 tablet 03/24/19 History of Present Illiness History of Present Illness: DK MONGE is a 73 year old female with a past medical history significant for DM 2, HLD, COPD, tobacco dependence with continuous use who presents to the emergency department today with a complaint of 3 weeks of progressively worsening shortness of breath and productive cough unresponsive to prednisone and rescue inhalers. Patient is now experiencing dyspnea while at rest. Evaluation in the emergency department reveals Tachycardia (HR 110), tachypnea (RR 29), hypoxia on room air (88 at rest: 82% while ambulatory), unremarkable CBC, VBG, chemistry, urinalysis. EKG shows sinus tachycardia. Chest x-ray and CTA show obstructive disease but otherwise are benign. She is provided IV magnesium, Solu-Medrol, nebulizer treatments, and supplemental oxygen. She is referred to the hospitalist service for admission and management of the above-stated complaints of findings. Hospital Course Hospital Course: The patient was admitted to the medical floor and monitored on continuous pulse oximetry. She was provided supplemental oxygen as needed to maintain saturations greater than 89%. She did not required BiPAP support. COPD exacerbation was managed with standard care set of IV Solu-Medrol, Mucinex, and aggressive pulmonary toilet. There were no indications for antibiotic therapy. Patient's respiratory status gradually improved and she is now maintaining oxygen saturations while ambulatory on room air. She reports that she is feeling much better and is requesting to be discharged home today. Patient is discharged home in stable condition. She is advised to follow-up with her primary care provider within 1 week. She is instructed to stop smoking. Take medications as prescribed. Return to the emergency department as needed for concerning symptoms. Physical Exam Vital Signs: Temp Pulse Resp BP Pulse Ox 98.5 F 86 16 135/78 H 90 L 03/24/19 11:02 03/24/19 11:02 03/24/19 11:02 03/24/19 11:02 03/24/19 11:02 Pulse Oximeter Continuous Start: 03/21/19 17:26 Freq: RTQ4 Status: Discharge Protocol: Document 03/24/19 07:44 [facility] (Rec: 03/24/19 07:51 [facility] [id number]) Pulse Oximetry Assessment Oxygen Saturation (92-100) 90 Oxygen Delivery Method Room Air Fraction of Inspired Oxygen (FIO2) 21 Equipment Usage Equipment in Use Continuous SpO2 Machine # 5 Intake & Output 03/23/19 03/24/19 03/25/19 06:59 06:59 06:59 Intake Total 1496 1120 Balance 1496 1120 Weight 51.6 kg 51.8 kg General appearance: PRESENT: no acute distress, cooperative, well-developed, well-nourished Head exam: PRESENT: atraumatic, normocephalic Eye exam: PRESENT: conjunctiva pink, EOMI, PERRLA. ABSENT: scleral icterus Ear exam: PRESENT: normal external ear exam Mouth exam: PRESENT: moist, tongue midline Teeth exam: PRESENT: poor dentation Neck exam: ABSENT: carotid bruit, JVD, lymphadenopathy, thyromegaly Respiratory exam: PRESENT: prolonged expiratory phas, symmetrical, unlabored, wheezes - Scant. ABSENT: rales, rhonchi Cardiovascular exam: PRESENT: RRR, +S1, +S2, tachycardia - HR <110. ABSENT: diastolic murmur, rubs, systolic murmur Pulses: PRESENT: normal dorsalis pedis pul Vascular exam: PRESENT: normal capillary refill GI/Abdominal exam: PRESENT: normal bowel sounds, soft. ABSENT: distended, guarding, mass, organolmegaly, rebound, tenderness Rectal exam: PRESENT: deferred Extremities exam: PRESENT: full ROM. ABSENT: calf tenderness, clubbing, pedal edema Musculoskeletal exam: PRESENT: ambulatory Neurological exam: PRESENT: alert, awake, oriented to person, oriented to place, oriented to time, oriented to situation, CN II-XII grossly intact. ABSENT: motor sensory deficit Psychiatric exam: PRESENT: appropriate affect, normal mood. ABSENT: homicidal ideation, suicidal ideation Skin exam: PRESENT: dry, intact, warm. ABSENT: cyanosis, rash Results Laboratory Results: WBC 7.0 10^3/uL (4.0-10.5) 03/21/19 10:25 RBC 5.31 10^6/uL (3.72-5.28) H 03/21/19 10:25 Hgb 17.2 g/dL (12.0-15.5) H 03/21/19 10:25 Hct 50.5 % (36.0-47.0) H 03/21/19 10:25 MCV 95 fl (80-97) 03/21/19 10:25 MCH 32.4 pg (27.0-33.4) 03/21/19 10:25 MCHC 34.1 g/dL (32.0-36.0) 03/21/19 10:25 RDW 14.7 % (11.5-14.0) H 03/21/19 10:25 Plt Count 261 10^3/uL (150-450) 03/21/19 10:25 Lymph % (Auto) 42.6 % (13-45) 03/21/19 10:25 [place] % (Auto) 7.2 % (3-13) 03/21/19 10:25 Eos % (Auto) 1.9 % (0-6) 03/21/19 10:25 Baso % (Auto) 0.6 % (0-2) 03/21/19 10:25 Absolute Neuts (auto) 3.3 10^3/uL (1.7-8.2) 03/21/19 10:25 Absolute Lymphs (auto) 3.0 10^3/uL (0.5-4.7) 03/21/19 10:25 Absolute Monos (auto) 0.5 10^3/uL (0.1-1.4) 03/21/19 10:25 Absolute Eos (auto) 0.1 10^3/uL (0.0-0.6) 03/21/19 10:25 Absolute Basos (auto) 0.0 10^3/uL (0.0-0.2) 03/21/19 10:25 Seg Neutrophils % 47.7 % (42-78) 03/21/19 10:25 VBG pH 7.41 (7.30-7.42) 03/21/19 10:25 VBG pCO2 58.4 mmHg (35-63) 03/21/19 10:25 VBG HCO3 36.0 mmol/L (20-32) H 03/21/19 10:25 VBG Base Excess 8.6 mmol/L 03/21/19 10:25 Sodium 138.2 mmol/L (137-145) 03/21/19 10:25 Potassium 3.9 mmol/L (3.6-5.0) 03/21/19 10:25 Chloride 96 mmol/L (98-107) L 03/21/19 10:25 Carbon Dioxide 35 mmol/L (22-30) H 03/21/19 10:25 Anion Gap 7 (5-19) 03/21/19 10:25 BUN 7 mg/dL (7-20) 03/21/19 10:25 Creatinine 0.52 mg/dL (0.52-1.25) 03/21/19 10:25 Est GFR ( Amer) > 60 (>60) 03/21/19 10:25 Est GFR (MDRD) Non-Af > 60 (>60) 03/21/19 10:25 Glucose 157 mg/dL (75-110) H 03/21/19 10:25 POC Glucose 208 mg/dL (70-110) H 03/24/19 07:30 Lactic Acid 1.4 mmol/L (0.7-2.1) 03/21/19 13:15 Calcium 9.9 mg/dL (8.4-10.2) 03/21/19 10:25 Total Bilirubin 0.7 mg/dL (0.2-1.3) 03/21/19 10:25 Direct Bilirubin 0.3 mg/dL (0.0-0.4) 03/21/19 10:25 Neonat Total Bilirubin Not Reportable 03/21/19 10:25 Neonat Direct Bilirubin Not Reportable 03/21/19 10:25 Neonat Indirect Bili Not Reportable 03/21/19 10:25 AST 36 U/L (14-36) 03/21/19 10:25 ALT 38 U/L (<35) 03/21/19 10:25 Alkaline Phosphatase 55 U/L (38-126) 03/21/19 10:25 Total Protein 8.0 g/dL (6.3-8.2) 03/21/19 10:25 Albumin 4.6 g/dL (3.5-5.0) 03/21/19 10:25 Urine Color STRAW 03/21/19 13:33 Urine Appearance CLEAR 03/21/19 13:33 Urine pH 6.0 (5.0-9.0) 03/21/19 13:33 Ur Specific [place] 1.006 03/21/19 13:33 Urine Protein NEGATIVE mg/dL (NEGATIVE) 03/21/19 13:33 Urine Glucose (UA) 50 mg/dL (NEGATIVE) H 03/21/19 13:33 Urine Ketones TRACE mg/dL (NEGATIVE) H 03/21/19 13:33 Urine Blood NEGATIVE (NEGATIVE) 03/21/19 13:33 Urine Nitrite (Reflex) NEGATIVE (NEGATIVE) 03/21/19 13:33 Urine Bilirubin NEGATIVE (NEGATIVE) 03/21/19 13:33 Urine Urobilinogen NEGATIVE mg/dL (<2.0) 03/21/19 13:33 Leukocyte Esterase Rfl NEGATIVE (NEGATIVE) 03/21/19 13:33 Urine WBC (Reflex) < 1 /HPF 03/21/19 13:33 Squamous Epi Cells Auto <1 /HPF 03/21/19 13:33 Urine Mucus (Auto) RARE /LPF 03/21/19 13:33 Urine Ascorbic Acid NEGATIVE (NEGATIVE) 03/21/19 13:33 Impressions: Chest X-Ray 03/21/19 10:02 IMPRESSION: Hyperlucency from obstructive disease. No acute infiltrates Chest/Abdomen CTA 03/21/19 13:46 IMPRESSION: No CT angio evidence of thoracic aortic dissection or acute pulmonary emboli. No acute infiltrates. Plan Plan of Treatment: Patient is discharged home in stable condition. She is advised to follow-up with primary care provider within 1 week. She is instructed to stop smoking. She is encouraged to avoid known respiratory triggers (pollen, dust, pet dander, perfumes/strong odors, smoke). She is advised to take her medications as prescribed. Return to the emergency department as needed for concerning symptoms. Time Spent: Greater than 30 Minutes Stroke Is this a Stroke Patient?: No Acute Heart Failure - Is this a Heart Failure Patient?: No
== END 2019-03-24 11:25 | disposition home or self-care (01) ==
LOC: ER 09:43 → INTOOBSV 15:52 → EH 15:52 → 5 18:24
PROVIDERS: ADMIT Internal Medicine; ATTEND Internal Medicine
DX: J44.1 Chronic obstructive pulmonary disease with (acute) exacerbation (principal); J96.21 Acute and chronic respiratory failure with hypoxia; E11.9 Type 2 diabetes mellitus without complications; F17.210 Nicotine dependence, cigarettes, uncomplicated; E78.5 Hyperlipidemia, unspecified; Z79.899 Other long term (current) drug therapy; Z79.84 Long term (current) use of oral hypoglycemic drugs; Z79.51 Long term (current) use of inhaled steroids
CPT/HCPCS: 93005; 96376; 94640 ×5; 99285; 96374; 96375; 36415; 87040; 82962 ×4; 83605; 85025; 80053; 81001; 82803; 71045; 71275; 93010; 94660; 94667; 94762 ×4; G0378 ×5; J2920 ×3; J2930; J3475; J7620 ×4